=== PATIENT | female | born 1945 | race Caucasian/White ===

== ENCOUNTER → 2021-02-23 | Outpatient (CLI) | payer MEDICARE ==
[~2021-02-23] MED LIST: AZELASTINE205.5 MCG/; EVISTA60 MG PO; FLONASE 0.05% N16 GM; LEVOCETIRIZINE D5 MG PO; LIPITOR TAB 1010 MG PO; OMEPRAZOLE40 MG PO; SINGULAIR10 MG PO; TOPAMAX50 MG PO; TOVIAZ8 MG PO; VITAMIN B-121000 MCG PO; VITAMIN D31000 UNI1 PO
[2021-02-24 08:14] LABS: COMPLEMENT C3, SERUM 109 mg/dL (82-167); COMPLEMENT C4, SERUM 21 mg/dL (12-38)
== END ==
LOC: LAB 12:18
PROVIDERS: Internal Medicine
DX: D89.89 Other specified disorders involving the immune mechanism, not elsewhere classified (principal); R76.8 Other specified abnormal immunological findings in serum; M25.50 Pain in unspecified joint; M35.00 Sjogren syndrome, unspecified; R53.83 Other fatigue; M25.559 Pain in unspecified hip
CPT/HCPCS: 36415; 82595; 82728; 83520; 85652; 86140; 86160